=== PATIENT | female | born 1950 | race American Indian/Alaskan Native ===

== ENCOUNTER 2020-03-24 03:22 | Emergency (ER) | payer MEDICARE ==
[~2020-03-24] VITALS: Ht 165.1 cm; Wt 110.7 kg
--- NOTE | 2020-03-24 03:45 | NUR ---
Patient ambulating with steady gait. A&O x4. c/o edema to BLE, SOB, CP, left rib pain radiating to LLE x3 days. Patient was seen at [facility] 20 mins [employer]. Patient was given rx for Lasix and Potassium. Redness / swelling noted on BLE. pulses palpable. Patient breathing even and unlabored. no cough noted. Patient able to speak in complete sentences without pausing. Denies any / GI distress.
--- NOTE | 2020-03-24 03:50 | NUR ---
Dr. Hampton at bedside for MSE
[2020-03-24] MEDS ORDERED: ONDANSETRON ODT 4 MG TAB.RAPDIS SL ONE (04:00)
[2020-03-24] MEDS ORDERED: HYDROCODONE/APAP 10-325 MG TABLET PO ONE (04:00)
[2020-03-24] MEDS ORDERED: ASPIRIN 81 MG TAB.CHEW PO ONE (04:00)
[2020-03-24] MEDS ORDERED: ONDANSETRON ODT 4 MG TAB.RAPDIS ONE (04:07)
[2020-03-24] MEDS ORDERED: ASPIRIN 81 MG TAB.CHEW ONE (04:07)
[2020-03-24] MEDS ORDERED: HYDROCODONE/APAP 5-325MG TABLET ONE (04:08)
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
[2020-03-24 04:55] LABS: EOSINOPHILS # (AUTO) 0.2 K/uL (0.0-0.7); EOSINOPHILS % (AUTO) 3.6 % (0.0-7.0); HEMATOCRIT 25.3 % (31.2-41.9); HEMOGLOBIN 7.9 g/dL (10.9-14.3); LYMPHOCYTES # (AUTO) 1.3 K/uL (20.0-40.0); LYMPHOCYTES % (AUTO) 26.3 % (20.5-51.5); MEAN CORPUSCULAR HEMOGLOBIN 24.3 uug (24.7-32.8); MEAN CORPUSCULAR HGB CONC 31 g/dL (32.3-35.6); MEAN CORPUSCULAR VOLUME 77.4 fL (75.5-95.3); MONOCYTES # (AUTO) 0.7 K/uL (2.0-10.0); MONOCYTES % (AUTO) 13.9 % (0.0-11.0); NEUTROPHILS # (AUTO) 2.7 K/uL (1.8-8.9); NEUTROPHILS % (AUTO) 55.2 % (38.5-71.5); PLATELET COUNT (AUTO) 307 K/uL (179-408); RED BLOOD CELL COUNT(AUTO) 3.27 MIL/uL (3.63-4.92); WHITE BLOOD COUNT (AUTO) 4.9 K/uL (3.8-11.8)
[2020-03-24 04:57] LABS: CREATININE 1.1 mg/dL (0.6-1.3); POTASSIUM 4.2 mmol/L (3.5-5.1)
[2020-03-24 05:10] LABS: BILIRUBIN,DIRECT 0.1 mg/dL (0.0-0.2); BILIRUBIN,TOTAL 0.4 mg/dL (0.2-1.0); TOTAL PROTEIN, SERUM 7.3 g/dL (6.4-8.2)
[2020-03-24] MEDS ORDERED: IV NORMAL SALINE 250 ML IV ONE (05:57)
[2020-03-24] MEDS ORDERED: SWABABLE VALVE TRANSFER SET EA MC ONE (05:57)
[2020-03-24] MEDS ORDERED: IOHEXOL 350 100 ML INFUS..BTL ONE (05:57)
--- NOTE | 2020-03-24 06:08 | NUR ---
[facility].
--- NOTE | 2020-03-24 06:20 | NUR ---
Patient back from CT scan in stable condition
--- NOTE | 2020-03-24 08:43 | NUR ---
Copies of all the tests' results were provided to patient. IV removed. Catheter intact and site benign. Pressure and 4x4 gauze applied to site. No bleeding noted. Patient discharged to home in stable condition and steady gait. Written and verbal after care instructions given to patient. Patient verbalized understanding & compliance of instructions. Emphasis and stressed for follow up with pharmacist helper, delivery technician and her primary doctor were told to patient or to return to ER for worsening of s/s.
== END 2020-03-24 08:43 | disposition home or self-care (01) ==
LOC: EDBD 03:26 → ER 03:26
DX: R07.89 Other chest pain (principal); S90.852A Superficial foreign body, left foot, initial encounter; W45.8XXA Other foreign body or object entering through skin, initial encounter; Y92.89 Other specified places as the place of occurrence of the external cause; I89.0 Lymphedema, not elsewhere classified; Z91.81 History of falling; E66.01 Morbid (severe) obesity due to excess calories; D64.9 Anemia, unspecified; M19.072 Primary osteoarthritis, left ankle and foot; M71.22 Synovial cyst of popliteal space [Baker], left knee; I87.2 Venous insufficiency (chronic) (peripheral); R06.00 Dyspnea, unspecified
CPT/HCPCS: 36415; 71045; 71275; 73630; 80048; 80076; 83880; 84484 ×2; 85025; 85379; 85730; 93005; 93970; 99285; Q9967; 70030-TC; A4663; J7050; Q0162

== ENCOUNTER 2020-03-24 22:21 | Emergency (ER) | payer MEDICARE ==
[~2020-03-24] VITALS: Ht 165.1 cm; Wt 119.7 kg
--- NOTE | 2020-03-24 23:08 | NUR ---
Dr. Holguin at bedside for MSE.
--- NOTE | 2020-03-24 23:27 | NUR ---
Security at bedside for 1:1
[2020-03-24 23:38] LABS: *BILIRUBIN,URIN NEGATIVE (NEGATIVE); *BLOOD, URINE NEGATIVE (NEGATIVE); *COLOR,URINE YELLOW (YELLOW); *KETONES,URINE NEGATIVE (NEGATIVE); *UROBILINOGEN,URINE 0.2 E.U./dl (NORMAL); LEUKOCYTE ESTERASE ,URINE TRACE (NEGATIVE); NITRITE, URINE NEGATIVE (NEGATIVE); PH,URINE 5.5 (5.0-8.0); UGLUCOSE NEGATIVE (NEGATIVE)
[2020-03-24 23:39] LABS: *CLARITY,URINE HAZY (CLEAR)
[2020-03-24 23:41] LABS: BASOPHILS % (AUTO) 0.9 % (0.0-2.0); EOSINOPHILS # (AUTO) 0.2 K/uL (0.0-0.7); EOSINOPHILS % (AUTO) 3.1 % (0.0-7.0); HEMATOCRIT 27.6 % (31.2-41.9); HEMOGLOBIN 8.5 g/dL (10.9-14.3); LYMPHOCYTES # (AUTO) 1.2 K/uL (20.0-40.0); LYMPHOCYTES % (AUTO) 23.3 % (20.5-51.5); MEAN CORPUSCULAR HEMOGLOBIN 23.7 uug (24.7-32.8); MEAN CORPUSCULAR HGB CONC 31 g/dL (32.3-35.6); MEAN CORPUSCULAR VOLUME 76.9 fL (75.5-95.3); MONOCYTES # (AUTO) 0.5 K/uL (2.0-10.0); MONOCYTES % (AUTO) 10.9 % (0.0-11.0); NEUTROPHILS # (AUTO) 3.1 K/uL (1.8-8.9); NEUTROPHILS % (AUTO) 61.8 % (38.5-71.5); PLATELET COUNT (AUTO) 340 K/uL (179-408); RED BLOOD CELL COUNT(AUTO) 3.59 MIL/uL (3.63-4.92)
[2020-03-24 23:46] LABS: BACTERIA,URINE FEW /HPF (NONE SEEN); RBC,URINE 0-3 /HPF (0-3); SQUAMOUS EPITHELIAL CELL,UR MANY /HPF (NONE SEEN)
[2020-03-24 23:53] LABS: ALANINE AMINOTRANSFERASE 32 U/L (14-59); ALKALINE PHOSPHATASE 151 U/L (50-136); ASPARTATE AMINOTRANSFERASE 27 U/L (15-37); BILIRUBIN,DIRECT 0.1 mg/dL (0.0-0.2); BILIRUBIN,TOTAL 0.3 mg/dL (0.2-1.0); CARBON DIOXIDE 32 mmol/L (21-32); CHLORIDE 102 mmol/L (98-107); CREATININE 1.3 mg/dL (0.6-1.3); GLUCOSE 128 mg/dL (74-106); POTASSIUM 4.3 mmol/L (3.5-5.1); TOTAL PROTEIN, SERUM 7.9 g/dL (6.4-8.2); UREA NITROGEN, BLOOD 21 mg/dL (7-18)
[2020-03-24 23:54] LABS: *AMPHETAMINE, URINE NEGATIVE (NEGATIVE); *BARBITURATE, URINE NEGATIVE (NEGATIVE); *CANNABINOID, URINE NEGATIVE (NEGATIVE); *COCCAINE, URINE NEGATIVE (NEGATIVE); *OPIATE, URINE POSITIVE (NEGATIVE); *PHENCYCLIDINE SCREEN,URINE NEGATIVE (NEGATIVE)
[2020-03-24 23:57] LABS: ACETAMINOPHEN < 2.0 ug/mL (10-30)
[2020-03-25 00:19] LABS: ETHANOL < 3 MG/DL (0-0)
--- NOTE | 2020-03-25 00:21 | NUR ---
Called Rosa De La Rosa RN PET for psych eval, left message.
--- NOTE | 2020-03-25 00:33 | NUR ---
Called Patient's friend Jovan, left a message.
--- NOTE | 2020-03-25 00:39 | NUR ---
Called Rosa De La Rosa RN PET for psych eval, left a message.
--- NOTE | 2020-03-25 00:51 | NUR ---
Received call back from Rosa DHALIWAL PET, eta 1 hour.
--- NOTE | 2020-03-25 02:10 | NUR ---
Patient's friend, Jovan, came to ER, now speaking with Dr. Holguin.
--- NOTE | 2020-03-25 02:24 | NUR ---
Received call from Rosa De La Rosa RN PET, going to be another hour eta.
--- NOTE | 2020-03-25 03:59 | NUR ---
Called Rosa De La Rosa RN PET, states another 45min eta.
--- NOTE | 2020-03-25 04:41 | NUR ---
Rosa De La Rosa RN PET arrived to ER for pt psych eval.
--- NOTE | 2020-03-25 05:09 | NUR ---
Patient discharged to home in stable condition. Pt was evaluated by PET team and was determined to not be holdable. Written and verbal after care instructions given. Patient verbalizes understanding of instructions. Stressed follow up or return to ER for worsening s/s. Pt out of ER with steady gait with cane, VSS, no acute signs of distress, all belongings taken, in waiting room waiting for friend to bulk picker.
[2020-03-25 05:13] VITALS: BP 150/68
== END 2020-03-25 05:14 | disposition home or self-care (01) ==
LOC: ER 22:22
DX: M79.89 Other specified soft tissue disorders (principal); I50.9 Heart failure, unspecified; Z79.899 Other long term (current) drug therapy; Z20.828 Contact with and (suspected) exposure to other viral communicable diseases; R46.89 Other symptoms and signs involving appearance and behavior; Z82.49 Family history of ischemic heart disease and other diseases of the circulatory system; J45.909 Unspecified asthma, uncomplicated
CPT/HCPCS: 36415; 80048; 80076; 80307 ×2; 80329; 81001; 85025; 87086; 99284; G0480; A4663

== ENCOUNTER 2021-01-23 04:41 | Emergency (ER) | payer OTHER ==
[~2021-01-23] VITALS: Ht 165.1 cm; Wt 131.5 kg
[~2021-01-23 04:41] MED LIST: FERR325C PO; FURO-152 PO; POTA20TA83 PO
--- NOTE | 2021-01-23 05:02 | NUR ---
Pt is a 70 y/o female, w/in from home. Denies homelessness.. States that she is here due to; "dizziness from medications that was prescribed to her". She is AO x 3, however noted with flight of ideas, jumping from one topic to another, then narrates events occurring at a timeline that does not align with reality. Pt is able to be redirected back to topic, but appears to be a poor historian. Does not appear to be in acute distress and VS stable. Side rails up x 1. Bed locked in place.
--- NOTE | 2021-01-23 05:15 | NUR ---
Dr. Márquez at bedside for MSE.
[2021-01-23] MEDS ORDERED: LISI-782 PO (05:41)
[2021-01-23] MEDS ORDERED: BUME1TAB8 PO (05:41)
[2021-01-23] MEDS ORDERED: CELE200C PO (05:41)
[2021-01-23 06:03] LABS: EOSINOPHILS # (AUTO) 0.2 K/uL (0.0-0.7); MONOCYTES # (AUTO) 0.5 K/uL (2.0-10.0); NEUTROPHILS # (AUTO) 2.8 K/uL (1.8-8.9); WHITE BLOOD COUNT (AUTO) 4.9 K/uL (3.8-11.8)
[2021-01-23 06:05] LABS: BASOPHILS % (AUTO) 0.9 % (0.0-2.0); EOSINOPHILS % (AUTO) 3.5 % (0.0-7.0); HEMATOCRIT 24.1 % (31.2-41.9); LYMPHOCYTES # (AUTO) 1.4 K/uL (20.0-40.0); LYMPHOCYTES % (AUTO) 28.1 % (20.5-51.5); MEAN CORPUSCULAR HEMOGLOBIN 26.4 uug (24.7-32.8); MEAN CORPUSCULAR HGB CONC 31 g/dL (32.3-35.6); MEAN CORPUSCULAR VOLUME 86.2 fL (75.5-95.3); NEUTROPHILS % (AUTO) 57.5 % (38.5-71.5); PLATELET COUNT (AUTO) 309 K/uL (179-408); RED BLOOD CELL COUNT(AUTO) 2.79 MIL/uL (3.63-4.92)
[2021-01-23 06:10] LABS: HEMOGLOBIN 7.4 g/dL (10.9-14.3)
[2021-01-23 06:30] LABS: CREATININE 1.1 mg/dL (0.6-1.3); POTASSIUM 4.2 mmol/L (3.5-5.1)
[2021-01-23 06:43] LABS: BILIRUBIN,DIRECT 0.1 mg/dL (0.0-0.2); BILIRUBIN,TOTAL 0.2 mg/dL (0.2-1.0); TOTAL PROTEIN, SERUM 6.5 g/dL (6.4-8.2)
--- NOTE | 2021-01-23 06:46 | NUR ---
Care handed off to Dr. Kong, who decided on admitting the patient based on all available reports from prior MD and labs available. As the MD was explaining the importance of getting admitted to receive further treatments and test, patient decided to go home against medical advice. Dr. Kong emphasized the risks of leaving, up to and including . Pt was adamant on leaving, "I have to appear in court.", "I have to go see my dog waiting for me in the car". Etc. Pt signed AMA form, but did not wait for DC papers from MD. Patient walked out of the ER in steady gait.
[2021-01-23 06:51] VITALS: BP 120/75
== END 2021-01-23 06:50 | disposition left against medical advice (07) ==
LOC: ER 04:44
DX: R42 Dizziness and giddiness (principal); R29.6 Repeated falls; J45.909 Unspecified asthma, uncomplicated; J81.1 Chronic pulmonary edema; D64.9 Anemia, unspecified; Z88.0 Allergy status to penicillin; Z79.899 Other long term (current) drug therapy; E66.01 Morbid (severe) obesity due to excess calories; Z68.42 Body mass index [BMI] 45.0-49.9, adult; R79.1 Abnormal coagulation profile
CPT/HCPCS: 36415; 70030-TC; 71045; 85025; 85730; 93005; A4663

== ENCOUNTER 2025-04-20 00:31 | Inpatient (IN) | payer MEDICARE, OTHER ==
[~2025-04-20] VITALS: Ht 167.6 cm; Wt 108.2 kg
[~2025-04-20 00:31] MED LIST changes: +BUME1TAB8 PO; +CELE200C PO; -FURO-152 PO; +LISI-782 PO
[2025-04-20] MEDS: VANCOMYCIN IV 1,000 MG in IV DEXTROSE 5% 250 ML IV ONE (01:00)
[2025-04-20] MEDS: diphenhydrAMINE 50 MG/1 ML VIAL IVP ONE (01:00)
[2025-04-20 01:10] LABS: BASOPHILS % (AUTO) 0.6 % (0.0-2.0); DIFFERENTIAL COMMENT 1; EOSINOPHILS # (AUTO) 0.1 K/uL (0.0-0.7); EOSINOPHILS % (AUTO) 1.7 % (0.0-7.0); HEMATOCRIT 31.4 % (31.2-41.9); LYMPHOCYTES # (AUTO) 0.9 K/uL (0.8-4.8); MEAN CORPUSCULAR HEMOGLOBIN 25.9 uug (24.7-32.8); MEAN CORPUSCULAR HGB CONC 32 g/dL (32.3-35.6); MONOCYTES # (AUTO) 0.4 K/uL (0.1-1.30); MONOCYTES % (AUTO) 9.5 % (0.0-11.0); NEUTROPHILS # (AUTO) 2.5 K/uL (1.8-8.9); NEUTROPHILS % (AUTO) 65.2 % (38.5-71.5); PLATELET COUNT (AUTO) 340 K/uL (179-408); RED BLOOD CELL COUNT(AUTO) 3.87 MIL/uL (3.63-4.92); WHITE BLOOD COUNT (AUTO) 3.9 K/uL (3.8-11.8)
[2025-04-20 01:16] LABS: CALCIUM 9.2 mg/dL (8.5-10.1); CARBON DIOXIDE 30 mmol/L (21-32); CHLORIDE 103 mmol/L (98-107); CREATININE 0.9 mg/dL (0.6-1.3); GLUCOSE 115 mg/dL (74-106); SODIUM SERUM 140 mmol/L (136-145); UREA NITROGEN, BLOOD 28 mg/dL (7-18)
[2025-04-20 01:20] LABS: ETHANOL < 3 MG/DL (0-10)
[2025-04-20 01:22] LABS: ALANINE AMINOTRANSFERASE 16 U/L (14-59); ALKALINE PHOSPHATASE 134 U/L (50-136); ASPARTATE AMINOTRANSFERASE 22 U/L (15-37); BILIRUBIN,DIRECT 0.1 mg/dL (0.0-0.2); BILIRUBIN,TOTAL 0.3 mg/dL (0.2-1.0)
[2025-04-20 01:30] LABS: THYROID STIMULATING HORMONE 3.499 mIU/mL (0.358-3.740)
[2025-04-20 01:38] LABS: *BILIRUBIN,URIN NEGATIVE (NEGATIVE); *CLARITY,URINE CLEAR (CLEAR); *COLOR,URINE YELLOW (YELLOW); *KETONES,URINE NEGATIVE (NEGATIVE); *PROTEIN,URINE NEGATIVE (NEGATIVE); *UROBILINOGEN,URINE 0.2 E.U./dl (NORMAL); LEUKOCYTE ESTERASE ,URINE NEGATIVE (NEGATIVE); NITRITE, URINE NEGATIVE (NEGATIVE); PH,URINE 5.5 (5.0-8.0); UGLUCOSE 3+ (NEGATIVE)
[2025-04-20 01:39] LABS: ACETAMINOPHEN < 10.0 ug/mL (10-30)
[2025-04-20 01:39] LABS: *BLOOD, URINE TRACE (NEGATIVE)
[2025-04-20 01:40] LABS: BACTERIA,URINE NONE SEEN /HPF (NONE SEEN); RBC,URINE 0-3 /HPF (0-3); SQUAMOUS EPITHELIAL CELL,UR FEW /HPF (NONE SEEN); WBC,URINE NONE SEEN /HPF (0-3)
[2025-04-20 01:46] LABS: *AMPHETAMINE, URINE NEGATIVE (NEGATIVE); *BARBITURATE, URINE NEGATIVE (NEGATIVE); *BENZODIAZEPINE, URINE POSITIVE (NEGATIVE); *CANNABINOID, URINE NEGATIVE (NEGATIVE); *COCCAINE, URINE NEGATIVE (NEGATIVE); *OPIATE, URINE NEGATIVE (NEGATIVE); *PHENCYCLIDINE SCREEN,URINE NEGATIVE (NEGATIVE); FENTANYL, URINE NEGATIVE (NEGATIVE)
[2025-04-20] MEDS ORDERED: diphenhydrAMINE 50 MG/1 ML VIAL ONE ×2 (02:18→08:32)
[2025-04-20] MEDS ORDERED: VANCOMYCIN IV 200 ML ONE ×2 (02:18→22:22)
[2025-04-20] MEDS: HALOPERIDOL LACTATE 5 MG/1 ML VIAL IV ONE (02:30)
[2025-04-20] MEDS ORDERED: HALOPERIDOL LACTATE 5 MG/1 ML VIAL ONE ×2 (02:45→08:32)
[2025-04-20] MEDS ORDERED: LORAZEPAM 2 MG/1 ML VIAL ONE (08:33)
[2025-04-20] MEDS ORDERED: MORPHINE SULFATE 2 MG/1 ML DISP.SYRIN IVP PRN (08:45)
[2025-04-20] MEDS ORDERED: ONDANSETRON 4 MG/2 ML VIAL IV PRN (08:45)
[2025-04-20] MEDS ORDERED: ACETAMINOPHEN 325 MG TABLET PO PRN (08:45)
[2025-04-20] MEDS ORDERED: hydrALAZINE HCL 20 MG/1 ML VIAL IV PRN (08:45)
[2025-04-20] MEDS: diphenhydrAMINE 50 MG/1 ML VIAL IM ONE (08:47)
[2025-04-20] MEDS: HALOPERIDOL LACTATE 5 MG/1 ML VIAL IM ONE (08:47)
[2025-04-20] MEDS: LORAZEPAM 2 MG/1 ML VIAL IM ONE (08:48)
[2025-04-20] MEDS ORDERED: FERROUS SULFATE 325 MG PO SCH (12:00)
[2025-04-20] MEDS ORDERED: BUMETANIDE 1 MG TABLET ONE (19:52)
[2025-04-20] MEDS ORDERED: LISINOPRIL 10 MG TABLET ONE (19:52)
[2025-04-20] MEDS ORDERED: HEPARIN SODIUM,PORCINE 5,000 UNITS/ML VIAL ONE (19:52)
[2025-04-20] MEDS: HEPARIN SODIUM,PORCINE 5,000 UNITS/ML VIAL SQ SCH (20:01)
[2025-04-20] MEDS: LISINOPRIL 5 MG TABLET PO SCH (20:03)
[2025-04-20] MEDS: BUMETANIDE 1 MG TABLET PO SCH (20:03)
[2025-04-20] MEDS: IV NS 1000 ML 1,000 ML IV SCH (21:15)
[2025-04-20 21:32] VITALS: BP 109/61; TEMP 97.7; O2SAT 97
[2025-04-20] MEDS ORDERED: CEFEPIME HCL 1 G VIAL ONE (22:22)
[2025-04-20] MEDS: CEFEPIME HCL 1 G in IV DEXTROSE 5% 50 ML IV SCH (22:38)
[2025-04-21] MEDS: VANCOMYCIN IV 1,000 MG in IV DEXTROSE 5% 250 ML IV ONE (00:53)
[2025-04-21 04:55] VITALS: BP 143/77; TEMP 97.8; O2SAT 92
[2025-04-21 06:51] LABS: BASOPHILS % (AUTO) 0.6 % (0.0-2.0); EOSINOPHILS # (AUTO) 0.2 K/uL (0.0-0.7); EOSINOPHILS % (AUTO) 4.3 % (0.0-7.0); HEMATOCRIT 32.1 % (31.2-41.9); HEMOGLOBIN 10.1 g/dL (10.9-14.3); LYMPHOCYTES # (AUTO) 0.8 K/uL (0.8-4.8); LYMPHOCYTES % (AUTO) 20.4 % (20.5-51.5); MEAN CORPUSCULAR HEMOGLOBIN 26.1 uug (24.7-32.8); MEAN CORPUSCULAR HGB CONC 31 g/dL (32.3-35.6); MEAN CORPUSCULAR VOLUME 83.3 fL (75.5-95.3); MONOCYTES # (AUTO) 0.4 K/uL (0.1-1.30); MONOCYTES % (AUTO) 9.1 % (0.0-11.0); NEUTROPHILS # (AUTO) 2.6 K/uL (1.8-8.9); NEUTROPHILS % (AUTO) 65.6 % (38.5-71.5); PLATELET COUNT (AUTO) 326 K/uL (179-408); RED BLOOD CELL COUNT(AUTO) 3.86 MIL/uL (3.63-4.92); RED CELL DISTRIBUTION WIDTH 24.7 % (12.3-17.7); WHITE BLOOD COUNT (AUTO) 3.9 K/uL (3.8-11.8)
[2025-04-21 06:54] LABS: DIFFERENTIAL COMMENT 1
[2025-04-21 07:12] LABS: ALANINE AMINOTRANSFERASE 20 U/L (14-59); ALBUMIN 2.7 g/dL (3.4-5.0); ALKALINE PHOSPHATASE 128 U/L (50-136); ASPARTATE AMINOTRANSFERASE 21 U/L (15-37); BILIRUBIN,TOTAL 0.2 mg/dL (0.2-1.0); CALCIUM 8.4 mg/dL (8.5-10.1); CARBON DIOXIDE 29 mmol/L (21-32); CHLORIDE 103 mmol/L (98-107); CREATININE 0.8 mg/dL (0.6-1.3); GLUCOSE 104 mg/dL (74-106); POTASSIUM 4.3 mmol/L (3.5-5.1); SODIUM SERUM 139 mmol/L (136-145); TOTAL PROTEIN, SERUM 7.4 g/dL (6.4-8.2); UREA NITROGEN, BLOOD 17 mg/dL (7-18)
[2025-04-21] MEDS: FERROUS SULFATE 325 MG TABEC PO SCH (08:39)
[2025-04-21] MEDS ORDERED: OLANZAPINE ZYDIS 5 MG TAB.RAPDIS PO PRN (09:45)
[2025-04-21] MEDS ORDERED: LORAZEPAM 1 MG TABLET PO PRN (09:45)
[2025-04-21 10:56] VITALS: BP 144/88; TEMP 98.5; O2SAT 94
[2025-04-21] MEDS ORDERED: FURO40TA5 PO (11:43)
[2025-04-21] MEDS ORDERED: EMPA10TA PO (11:43)
[2025-04-21] MEDS ORDERED: FOLI1TAB27 PO (11:43)
[2025-04-21] MEDS ORDERED: CYAN100T44 PO (11:45)
[2025-04-21] MEDS ORDERED: MULT-225 PO (11:45)
[2025-04-21] MEDS: VANCOMYCIN IV 1,250 MG in IV DEXTROSE 5% 250 ML IV SCH (11:51)
[2025-04-21 16:05] VITALS: BP 114/59; TEMP 98.5; O2SAT 95
[2025-04-21] MEDS ORDERED: FERROUS SULFATE 325 MG TABEC PO SCH (17:00)
[2025-04-22] MEDS ORDERED: BUMETANIDE 1 MG TABLET PO SCH (09:00)
[2025-04-22] MEDS ORDERED: LISINOPRIL 5 MG TABLET PO SCH (09:00)
== END 2025-04-21 16:50 | disposition left against medical advice (07) | DRG 602 ==
LOC: ER 01:11 → MEDSURG3 20:23
PROVIDERS: ADMIT Internal Medicine; ATTEND Internal Medicine
DX: L03.116 Cellulitis of left lower limb (principal); G92.8 Other toxic encephalopathy; G92.9 Unspecified toxic encephalopathy; L03.115 Cellulitis of right lower limb; I89.0 Lymphedema, not elsewhere classified; Z91.410 Personal history of adult physical and sexual abuse; F31.9 Bipolar disorder, unspecified; E86.0 Dehydration; T43.505A Adverse effect of unspecified antipsychotics and neuroleptics, initial encounter; Y92.238 Other place in hospital as the place of occurrence of the external cause; Z53.29 Procedure and treatment not carried out because of patient's decision for other reasons; D64.9 Anemia, unspecified; I11.0 Hypertensive heart disease with heart failure; I50.9 Heart failure, unspecified; Z88.0 Allergy status to penicillin; R79.1 Abnormal coagulation profile
CPT/HCPCS: 36415; 71045; 83605; 84100; 84443; 85025; 87040; A4663; G0378; G0480; J0692; J1200; J1630; J1644; J2060; J3370; J7040; J7050